=== PATIENT | female | born 1965 | race Caucasian/White ===

== ENCOUNTER → 2018-01-13 | Outpatient (CLI) | payer OTHER ==
[~2018-01-13] MED LIST: CELEXA20 MG PO; PREDNISONE 10 M10 MG PO; RITALIN10 MG
== END ==
LOC: MRI 11-20 08:50
DX: G35 Multiple sclerosis (principal); R93.8 Abnormal findings on diagnostic imaging of other specified body structures; Z86.69 Personal history of other diseases of the nervous system and sense organs